=== PATIENT | female | born 1985 | race Asian ===

== ENCOUNTER 2016-11-13 18:00 | Inpatient (IN) | payer BC ==
[2016-11-14] MEDS ORDERED: Docusate 100 MG CAP PO PRN (12:35)
[2016-11-14] MEDS ORDERED: LR 500 ML/Oxytocin 10 units 500 ML IV SCH (12:35)
[2016-11-14] MEDS ORDERED: Misoprostol 200 MCG TAB PR PRN (12:35)
[2016-11-14] MEDS ORDERED: Acetaminophen 500 MG TAB PO PRN (12:35)
[2016-11-14] MEDS ORDERED: Ondansetron HCl/PF 4 MG/2 ML Vial IVP PRN ×2 (12:35→21:13)
[2016-11-14] MEDS ORDERED: Diphenoxylate HCl/Atropine Tablet PO PRN ×2 (12:35)
[2016-11-14] MEDS ORDERED: Lidocaine 1% (PF) 30 ML VIAL SC PRN (12:35)
[2016-11-14] MEDS ORDERED: Zolpidem Tartrate 5 MG TAB PO PRN (12:35)
[2016-11-14] MEDS ORDERED: LR / Pitocin 40 units/1000 ml 1,000 ML IV PRN (12:35)
[2016-11-14] MEDS ORDERED: HYDROcodone/Acetaminophen 5/325 mg Tablet PO PRN ×2 (12:35)
[2016-11-14] MEDS ORDERED: Ibuprofen 800 MG TAB PO PRN (12:35)
[2016-11-14] MEDS ORDERED: Promethazine HCl 25 MG/ML VIAL IM PRN ×2 (12:35→21:13)
[2016-11-14 13:00] VITALS: BMI 28.0
[2016-11-14] MEDS: Lactated Ringer's 1,000 ML IV SCH ×2 (13:45→20:47)
[2016-11-14] MEDS: Misoprostol 100 MCG TAB VAG SCH ×2 (13:59→17:55)
[2016-11-14 14:03] LABS: Hematocrit 35.6 % (36.0-47.0); Mean Platelet Volume 8.9 fL (7.4-10.4); Red Blood Cell (RBC) Count 3.54 mill/uL (4.20-5.40); White Blood Cell (WBC) Count 6.1 thou/uL (4.8-10.8)
[2016-11-14] MEDS ORDERED: Fentanyl 4 mcg/Marc 0.1% Cadd 100 ML ONE (20:38)
[2016-11-14] MEDS ORDERED: FLU VACC QS2017-18 36 mo. & older 0.5 ML SYRINGE IM ONE (21:00)
[2016-11-14] MEDS ORDERED: Acetaminophen 325 MG TAB PO PRN (21:13)
[2016-11-14] MEDS ORDERED: Naloxone HCl 0.4 mg/ml Vial IVP PRN ×2 (21:13)
[2016-11-14] MEDS ORDERED: ePHEDrine/0.9% NaCl/PF SYRINGE 50 mg/10 ml SLOW IVP PRN (21:13)
[2016-11-14] MEDS ORDERED: Eucerin (Mineral Oil/Petrolatum,White) 30 gm Jar TOP PRN (21:13)
[2016-11-14] MEDS ORDERED: diphenhydrAMINE HCl 50 MG/ML 1 ML VIAL IVP PRN (21:13)
[2016-11-14] MEDS ORDERED: Lactated Ringer's 500 ML IV PRN (21:13)
[2016-11-14] MEDS ORDERED: Communication Order-Pharmacy FS SCH (21:15)
[2016-11-15] MEDS: Lactated Ringer's 1,000 ML IV SCH ×2 (01:49→12:25)
[2016-11-15] MEDS: Fentanyl 4mcg/Marcaine 0.1% Cassette 100 ML EPIDURAL SCH ×4 (02:50→15:22)
[2016-11-15] MEDS: Misoprostol 100 MCG TAB VAG SCH ×5 (07:33→22:58)
[2016-11-15] MEDS ORDERED: Fentanyl 100 MCG/2 ML VIAL ONE (08:57)
[2016-11-15] MEDS ORDERED: Adacel (T-DAP) 0.5 ML VIAL IM ONE (09:00)
[2016-11-15] MEDS ORDERED: Acetaminophen 650 MG Suppository PR SCH (16:00)
[2016-11-15] MEDS ORDERED: Preparation H Ointment 28 GM TUBE PR PRN ×2 (18:30→21:07)
[2016-11-15] MEDS ORDERED: Zolpidem Tartrate 5 MG TAB PO PRN ×2 (18:30→21:07)
[2016-11-15] MEDS ORDERED: LR / Pitocin 40 units/1000 ml 1,000 ML IV SCH ×2 (18:30→21:15)
[2016-11-15] MEDS ORDERED: Milk Of Magnesia 30 ML UDCUP PO PRN ×2 (18:30→21:07)
[2016-11-15] MEDS ORDERED: diphenhydrAMINE HCl 25 MG CAP PO PRN (18:30)
[2016-11-15] MEDS ORDERED: Lanolin Ointment 7 GM TUBE TOP PRN ×2 (18:30→21:07)
[2016-11-15] MEDS ORDERED: Bisacodyl 10 MG SUPP PR PRN ×2 (18:30→21:07)
[2016-11-15] MEDS ORDERED: Benzocaine/Menthol 20-0.5% 60 ML CAN TOP PRN ×2 (18:30→21:07)
[2016-11-15] MEDS ORDERED: Methylergonovine 0.2 MG TAB PO PRN ×2 (18:30→21:07)
[2016-11-15] MEDS ORDERED: Acetaminophen/Codeine 30-300mg Tablet PO PRN ×4 (18:30→21:07)
[2016-11-15] MEDS ORDERED: Ondansetron HCl/PF 4 MG/2 ML Vial IVP PRN ×2 (18:30→21:07)
[2016-11-15] MEDS ORDERED: Docusate (Surfak) 240 MG CAP PO SCH (21:00)
[2016-11-15] MEDS: Ibuprofen 800 MG TAB PO SCH (22:00)
[2016-11-15] MEDS ORDERED: Ibuprofen 800 MG TAB PO SCH (22:00)
[2016-11-16 05:36] LABS: Hematocrit 31.9 % (36.0-47.0); Mean Platelet Volume 8.4 fL (7.4-10.4); Red Blood Cell (RBC) Count 3.09 mill/uL (4.20-5.40); White Blood Cell (WBC) Count 17.3 thou/uL (4.8-10.8)
[2016-11-16] MEDS: Ibuprofen 800 MG TAB PO SCH ×3 (06:13→21:17)
[2016-11-16] MEDS ORDERED: Ferrous Sulfate 325 MG TAB PO SCH (08:00)
[2016-11-16] MEDS ORDERED: Adacel (T-DAP) 0.5 ML VIAL IM ONE (09:00)
[2016-11-16] MEDS ORDERED: Prenatal Vitamin 1 TAB PO SCH (09:00)
[2016-11-16] MEDS: Ferrous Sulfate 325 MG TAB PO SCH ×2 (10:01→19:12)
[2016-11-16] MEDS: Prenatal Vitamin 1 TAB PO SCH (10:02)
[2016-11-16] MEDS: Docusate (Surfak) 240 MG CAP PO SCH ×2 (10:02→21:16)
[2016-11-17] MEDS: Ibuprofen 800 MG TAB PO SCH (06:12)
[2016-11-17 07:58] VITALS: BP 109/65; TEMP 98.6
[2016-11-17] MEDS: Ferrous Sulfate 325 MG TAB PO SCH (09:44)
[2016-11-17] MEDS: Docusate (Surfak) 240 MG CAP PO SCH (09:46)
[2016-11-17] MEDS: Prenatal Vitamin 1 TAB PO SCH (09:47)
== END 2016-11-17 14:10 | disposition home or self-care (01) | DRG 774 ==
LOC: L&D 11-14 12:19 → 3SW 11-15 20:15
PROVIDERS: ADMIT Obstetrics & Gynecology; ATTEND Obstetrics & Gynecology
PROC: 3E0P7VZ Introduction of Hormone into Female Reproductive, Via Natural or Artificial Opening (ICD-10-PCS; 2016-11-14)
PROC: 10907ZC Drainage of Amniotic Fluid, Therapeutic from Products of Conception, Via Natural or Artificial Opening (ICD-10-PCS; 2016-11-14)
PROC: 10E0XZZ Delivery of Products of Conception, External Approach (ICD-10-PCS; principal; 2016-11-15)
PROC: 0KQM0ZZ Repair Perineum Muscle, Open Approach (ICD-10-PCS; 2016-11-15)
DX: O48.0 Post-term pregnancy (principal); O75.2 Pyrexia during labor, not elsewhere classified; O70.1 Second degree perineal laceration during delivery; Z3A.40 40 weeks gestation of pregnancy; Z37.0 Single live birth
CPT/HCPCS: 36415; 85027; 86780; 87340; 87389; J0290; J2001; J3010; J7120